=== PATIENT | male | born 1970 | race Caucasian/White ===

== ENCOUNTER 2025-07-29 12:52 | Outpatient (CLI) | payer OTHER, SELFPAY ==
[2025-07-29 13:12] VITALS: PULSE 84; RESP 18; O2SAT 97
--- NOTE | 2025-07-29 13:41 | XR_ITS ---
WS: [id number] Exam: XR chest 2V* [id number] Date/Time of Exam: 07/29/2025 1:48 PM Reason For Exam: CHRONIC OBSTRUCTIVE PULMONARY DISEASE No prior exams. The lungs are fully inflated and clear. Normal cardiomediastinal silhouette. No pleural effusion. Mild pectus excavatum. XR/XR chest 2V* [id number] IMPRESSION: 1. No acute cardiopulmonary finding.
== END 2025-07-29 12:53 | disposition home or self-care (01) ==
PROVIDERS: PCP Chiropractor; Visit Provider Chiropractor
DX: J44.9 Chronic obstructive pulmonary disease, unspecified (principal)
CPT/HCPCS: 71046; 94060; J7613